=== PATIENT | male | born 1990 | race Caucasian/White ===

== ENCOUNTER → 2024-03-27 | Outpatient (CLI) | payer OTHER ==
[~2024-03-27] MED LIST: AMOCLA875 PO
[2024-03-28 11:24] LABS: Stool Occult Blood Guaiac 1 Neg (Neg)
== END ==
LOC: LAB SHORT 16:47 → LAB 16:47
PROVIDERS: Nurse Practitioner Family
DX: K92.1 Melena (principal)
CPT/HCPCS: 82272

== ENCOUNTER 2024-10-06 20:46 | Emergency (ER) | payer OTHER ==
[~2024-10-06] VITALS: Ht 182.9 cm; Wt 79.4 kg
[2024-10-06] MEDS ORDERED: Dexamethasone Sod Phos 10 MG/ML 1ML VIAL IV ONE (20:55)
[2024-10-06] MEDS ORDERED: NS 1,000 ML IV SCH (20:55)
[2024-10-06] MEDS ORDERED: Ondansetron HCl 2 MG / ML 2ML Vial ONE (20:57)
[2024-10-06] MEDS ORDERED: EpiNEPhrine 1 MG/1 ML 1ML Vial IM ONE (21:00)
[2024-10-06] MEDS ORDERED: Ondansetron HCl 2 MG / ML 2ML Vial IV ONE (21:00)
[2024-10-06] MEDS ORDERED: DiphenhydrAMINE HCl 50 MG/ML 1ML Vial IV ONE (21:00)
[2024-10-06] MEDS ORDERED: Metoclopramide HCl 5MG / ML 2ML Vial IV ONE (22:15)
[2024-10-07] MEDS ORDERED: EPIPEN0.3 MG/0.1 IM (00:10)
[2024-10-07] MEDS ORDERED: FAMO20 PO (00:10)
[2024-10-07] MEDS ORDERED: BENADRYL25 M1 PO (00:10)
[2024-10-07] MEDS ORDERED: PRED20 PO (00:10)
== END 2024-10-07 00:36 | disposition home or self-care (01) ==
LOC: ER 20:46
DX: T63.461A Toxic effect of venom of wasps, accidental (unintentional), initial encounter (principal); L50.9 Urticaria, unspecified; Z79.2 Long term (current) use of antibiotics; Z91.030 Bee allergy status; L50.0 Allergic urticaria
CPT/HCPCS: 82947; 96361; 96374; 96375; 99285-25; J0165; J1100; J1200; J2405; J2765; J7030